=== PATIENT | female | born 2000 | race African-American/Black ===

== ENCOUNTER 2020-01-28 12:53 | Emergency (ER) | payer SELFPAY ==
[~2020-01-28] VITALS: Ht 162.6 cm; Wt 55.0 kg
[2020-01-28] MEDS ORDERED: BACITRACIN ZINC OINT UDPKT TOP ONE (14:00)
[2020-01-28] MEDS ORDERED: TETANUS, DIPHTHERIA, PERTUSSIS VAC/PF 0.5ML (>7YR OLD) IM ONE (14:00)
[2020-01-28] MEDS ORDERED: LIDOCAINE HCL/PF 1% 10 MG/ML 5ML VIAL IJ ONE (14:00)
[2020-01-28] MEDS ORDERED: IBUPROFEN 600MG TABLET PO ONE (14:00)
[2020-01-28 14:16] VITALS: BP 130/92
== END 2020-01-28 15:03 | disposition home or self-care (01) ==
LOC: ER 12:53
DX: S01.511A Laceration without foreign body of lip, initial encounter (principal); I49.9 Cardiac arrhythmia, unspecified; V89.9XXA Person injured in unspecified vehicle accident, initial encounter; Y93.89 Activity, other specified; Y92.89 Other specified places as the place of occurrence of the external cause; Y99.8 Other external cause status
CPT/HCPCS: 12011; 90471; 90715; 93005; 99283; J3490

== ENCOUNTER 2020-01-30 12:17 | Emergency (ER) | payer SELFPAY ==
[~2020-01-30] VITALS: Ht 154.9 cm; Wt 51.0 kg
[2020-01-30 12:25] VITALS: BP 158/98
== END 2020-01-30 13:20 | disposition home or self-care (01) ==
LOC: ER 12:17
DX: Z48.00 Encounter for change or removal of nonsurgical wound dressing (principal); R03.0 Elevated blood-pressure reading, without diagnosis of hypertension
CPT/HCPCS: 99281

== ENCOUNTER 2020-02-03 14:21 | Emergency (ER) | payer MEDICAID ==
[~2020-02-03] VITALS: Ht 154.9 cm; Wt 50.0 kg
[2020-02-03 14:23] VITALS: BP 115/75
== END 2020-02-03 15:26 | disposition home or self-care (01) ==
LOC: ER 14:21
DX: Z48.02 Encounter for removal of sutures (principal)
CPT/HCPCS: 99281

== ENCOUNTER 2020-02-06 16:28 | Emergency (ER) | payer MEDICAID ==
[~2020-02-06] VITALS: Ht 154.9 cm; Wt 50.0 kg
[2020-02-06 16:31] VITALS: BP 123/66
== END 2020-02-06 17:42 | disposition home or self-care (01) ==
LOC: ER 16:28
DX: Z48.02 Encounter for removal of sutures (principal)
CPT/HCPCS: 99281

== ENCOUNTER 2021-02-03 19:35 | Emergency (ER) | payer SELFPAY ==
[~2021-02-03] VITALS: Ht 157.5 cm; Wt 115.0 kg
[2021-02-03 21:05] VITALS: BP 121/69
== END 2021-02-03 22:05 | disposition left against medical advice (07) ==
LOC: ER 19:35
DX: Z53.21 Procedure and treatment not carried out due to patient leaving prior to being seen by health care provider (principal)
CPT/HCPCS: A4217; Z7610